=== PATIENT | female | born 1945 | race Caucasian/White ===

== ENCOUNTER → 2019-05-18 10:02 | Outpatient (CLI) | payer MEDICARE, SELFPAY ==
--- NOTE | 2019-05-18 10:06 | BD_ITS ---
STUDY: DUAL ENERGY X-RAY ABSORPTIOMETRY / DXA REASON FOR EXAM: Female, 73 years old. MACHINE PRINTER-SURGICAL EARLY AT 37 YRS OLD -- HX OF HRT AND TAMOXIFEN -- USES STEROID INHALER DAILY -- TAKES SUPPLEMENT WITH CALCIUM -- DOES MODERATE AMOUNT OF EXERCISE -- FAMILY HX OF OSTEO -- ZURDO OF 1.25 INCHES TECHNIQUE: Bone Mineral Density (BMD) measurements of lumbar spine and bilateral hips were obtained. COMPARISON: Comparison is made with prior study dated August 20, 2016. FINDINGS: Lumbar Spine (L1-L4): g/cm2 (0.901) / T-score (-2.2) / Z-score (-0.5) Findings are suggestive of osteopenia with a high fracture risk. Left Femur Total: g/cm2 (0.814) / T-score (-1.5) / Z-score (0.1) Left Femoral Neck: g/cm2 (0.813) / T-score (-1.6) / Z-score (0.2) Right Femur Total: g/cm2 (0.908) / T-score (-0.8) / Z-score (0.8) Right Femoral Neck: g/cm2 (0.840) / T-score (-1.4) / Z-score (0.4) The T-Scores on the most recent prior examination were: Lumbar Spine (L1-L4): There has been improvement of bone density since the previous examination. Left Femur Total: which represents a worsening of 1.2%. Right Femur Total: which represents an improvement of 6.1%. BD/Dexa Bone Density Study IMPRESSION: The patient is considered osteopenic as outlined below according to World [place] Organization (WHO) criteria with a high fracture risk. There has been improvement of bone density since the previous examination. Reference Information: The T-score is the number of standard deviations above or below the standard which is normal for young adults at their peak bone mineral density. The World Health Organization (WHO) interprets the T-scores as follows: Above -1 Normal bone density Between -1 and -2.5 Osteopenia Equal to / or below -2.5 Osteoporosis As a practical clinical guideline, osteopenia may be graded as follows: Mild -1 through -1.5 Moderate -1.6 through -2.0 Severe -2.1 through -2.4 The Z-score is the number of standard deviations above or below age-matched controls. A Z-score of less than -1.5 would be considered abnormal. References: 1. NIH Osteoporosis and Related Bone Diseases http://www.osteo.org 2. International Society for Clinical Densitometry http://www.iscd.org 3. National Osteoporosis Foundation http://www.nof.org Electronically Signed: Matthew Sutherland, at 14:25 EST , Service support ,
== END ==
PROVIDERS: Family Provider Internal Medicine; PCP Internal Medicine; Referring Provider Internal Medicine; Visit Provider Internal Medicine
DX: Z78.0 Asymptomatic menopausal state (principal)
CPT/HCPCS: 77080

== ENCOUNTER → 2022-01-22 | Outpatient (CLI) | payer MEDICARE, SELFPAY ==
--- NOTE | 2022-01-22 15:56 | BD_ITS ---
STUDY: DUAL ENERGY X-RAY ABSORPTIOMETRY / DXA REASON FOR EXAM: Female, 76 years old. [id number]. Patient is postmenopausal. TECHNIQUE: Bone Mineral Density (BMD) measurements of lumbar spine and bilateral hips were obtained. COMPARISON: Comparison is made with prior study dated 05/18/2019. FINDINGS: Lumbar Spine (L1-L4): g/cm2 (0.786) / T-score (-2.3) / Z-score (0.1) Findings are suggestive of osteopenia with a high fracture risk. Left Femur Total: g/cm2 (0.796) / T-score (-1.2) / Z-score (0.6) Left Femoral Neck: g/cm2 (0.640) / T-score (-1.9) / Z-score (0.2) Right Femur Total: g/cm2 (0.799) / T-score (-1.2) / Z-score (0.6) Right Femoral Neck: g/cm2 (0.644) / T-score (-1.9) / Z-score (0.2) The T-Scores on the most recent prior examination were: Lumbar Spine (L1-L4): There has been worsening of bone density since the previous examination. Left Femur Total: which represents an improvement of 5.6%. Right Femur Total: which represents a worsening of 5.4%. BD/Dexa Bone Density Study IMPRESSION: The patient is considered osteopenic as outlined below according to World [place] Organization (WHO) criteria with a high fracture risk. There has been worsening of bone density since the previous examination. Reference Information: The T-score is the number of standard deviations above or below the standard which is normal for young adults at their peak bone mineral density. The World Health Organization (WHO) interprets the T-scores as follows: Above -1 Normal bone density Between -1 and -2.5 Osteopenia Equal to / or below -2.5 Osteoporosis As a practical clinical guideline, osteopenia may be graded as follows: Mild -1 through -1.5 Moderate -1.6 through -2.0 Severe -2.1 through -2.4 The Z-score is the number of standard deviations above or below age-matched controls. A Z-score of less than -1.5 would be considered abnormal. References: 1. NIH Osteoporosis and Related Bone Diseases www osteo.org 2. International Society for Clinical Densitometry www iscd.org 3. National Osteoporosis Foundation www nof.org Electronically Signed: Matthew Sutherland MD at 9:36 EDT ,
== END | disposition home or self-care (01) ==
LOC: OPBD 15:51
PROVIDERS: PCP Internal Medicine; Referring Provider Internal Medicine; Visit Provider Internal Medicine
DX: Z78.0 Asymptomatic menopausal state (principal)
CPT/HCPCS: 77080

== ENCOUNTER → 2023-01-20 | Outpatient (CLI) | payer MEDICARE, SELFPAY ==
--- NOTE | 2023-01-20 12:15 | BI_ITS ---
MAMMOGRAPHY - BILATERAL SCREENING REASON FOR EXAM: Female, 77 years old. Routine annual screening examination. PERTINENT HISTORY: Personal history of breast cancer. Prior left lumpectomy and left axillary skin dissection. Heart with breast cancer. TECHNIQUE: Digital bilateral breast alina (3D mammographic acquisition) in the CC and MLO projections. 2-D mediolateral oblique (MLO) and craniocaudad (CC) views of both breasts were obtained. CAD: Full Field Digital Mammography with Computer Added Detection was performed. COMPARISON: Comparison is made with prior outside examination dated January 17, 2022. FINDINGS: Breast Composition: There are scattered areas of fibroglandular density. There are no dominant masses or suspicious calcifications. Postoperative scarring is seen in the upper deep medial portion of the left breast in keeping with prior lumpectomy. Surgical clips are seen in the left axilla. Stable appearance of the bilateral axillary lymph nodes. No other significant abnormalities are identified. There has been no significant change since the prior study. BI/SCRN MAMM (CAD)W/ALINA BILAT IMPRESSION: Stable bilateral screening mammogram. Yearly follow-up mammogram recommended. (A) ASSESSMENT CATEGORY: BIRADS Category 2: Benign. A letter regarding these results will be sent to the patient by the facility within 30 days. Approximately 10% of breast cancers are not detected by mammography. A normal mammogram should not delay biopsy of a clinically suspicious abnormality. [id number] Electronically Signed: Matthew Sutherland MD at 13:30 EDT ,
== END | disposition home or self-care (01) ==
PROVIDERS: PCP Internal Medicine; Referring Provider Internal Medicine; Visit Provider Internal Medicine
DX: Z12.31 Encounter for screening mammogram for malignant neoplasm of breast (principal)
CPT/HCPCS: 77063; 77067

== ENCOUNTER → 2024-05-11 | Outpatient (CLI) | payer MEDICARE, SELFPAY ==
--- NOTE | 2024-05-11 15:35 | BI_ITS ---
MAMMOGRAPHY - BILATERAL SCREENING 3-D TOMOSYNTHESIS REASON FOR EXAM: Female, 78 years old. postmenopausal -- screening PERTINENT HISTORY: No significant family history. TECHNIQUE: 2-D mammograms and 3-D Tomosynthesis of the breast (s) were performed. CAD was performed. COMPARISON: 01/20/2023 FINDINGS: The breast composition is heterogeneously dense that can obscure small breast masses. Scattered benign calcifications are seen. No dominant mass right breast. Area of focal asymmetry in the upper inner quadrant of the left breast at posterior depth and focal compression views recommended for further evaluation. No suspicious calcifications.. No architectural distortion is identified. There is no skin thickening or retraction. BI/SCRN MAMM (CAD)W/ALINA BILAT IMPRESSION: Further imaging evaluation is recommended. ASSESSMENT CATEGORY: BIRADS Category 0: Incomplete. Need additional imaging evaluation as above. A letter regarding these results will be sent to the patient by the facility within 30 days. FOLLOW UP RECOMMENDATION: Additional imaging recommended as above. (E) Approximately 10% of breast cancers are not detected by mammography. A normal mammogram should not delay biopsy of a clinically suspicious abnormality. Electronically Signed: Lino Bray MD at 19:59 EST ,
--- NOTE | 2024-05-11 15:36 | BD_ITS ---
STUDY: DUAL ENERGY X-RAY ABSORPTIOMETRY / DXA REASON FOR EXAM: Female, 78 years old. Postmenopausal screening TECHNIQUE: Bone Mineral Density (BMD) measurements of lumbar spine and bilateral hips were obtained. COMPARISON: 2021, 2019, 2016 FINDINGS: Lumbar Spine (L1-L4): g/cm2 (0.868) / T-score (-1.6) / Z-score (0.9) When compared to the previous study, the bone mineral density in the lumbar spine has increased by 4.6% Left Femur Total: g/cm2 (0.834) / T-score (-0.9) / Z-score (1.0) Left Femoral Neck: g/cm2 (0.682) / T-score (-1.5) / Z-score (0.7) Right Femur Total: g/cm2 (0.857) / T-score (-0.7) / Z-score (1.2) Right Femoral Neck: g/cm2 (0.675) / T-score (-1.6) / Z-score (0.6) When compared to the previous study, the bone mineral density of the left femur has increased by 4.7% and the right femur has increased by 7.2% BD/Dexa Bone Density Study IMPRESSION: The patient is considered osteopenic as outlined below according to World [place] Organization (WHO) criteria with a moderate fracture risk. 10 year fracture risk: Major osteoporotic fracture 31%, hip fracture in 18% Reference Information: The T-score is the number of standard deviations above or below the standard which is normal for young adults at their peak bone mineral density. The World Health Organization (WHO) interprets the T-scores as follows: Above -1 Normal bone density Between -1 and -2.5 Osteopenia Equal to / or below -2.5 Osteoporosis As a practical clinical guideline, osteopenia may be graded as follows: Mild -1 through -1.5 Moderate -1.6 through -2.0 Severe -2.1 through -2.4 The Z-score is the number of standard deviations above or below age-matched controls. A Z-score of less than -1.5 would be considered abnormal. References: 1. NIH Osteoporosis and Related Bone Diseases www osteo.org 2. International Society for Clinical Densitometry www iscd.org 3. National Osteoporosis Foundation www nof.org Electronically Signed: Wayne Cottrell MD at 11:29 EST ,
== END | disposition home or self-care (01) ==
PROVIDERS: PCP Internal Medicine; Referring Provider Internal Medicine; Visit Provider Internal Medicine
DX: Z12.31 Encounter for screening mammogram for malignant neoplasm of breast (principal); Z78.0 Asymptomatic menopausal state
CPT/HCPCS: 77063; 77067; 77080

== ENCOUNTER 2024-05-18 11:00 | Outpatient (RCR) | payer MEDICARE, SELFPAY ==
--- NOTE | 2024-04-05 09:58 | HP.PTEVAL_ITS ---
Patient's Visit Information Visit Information Visit Information: CLARENCE TERRY is a 78 year old F referred to Physical Therapy by Dr. Nichol Schneider DO with a diagnosis of poor balance. Date of Evaluation: 04/05/24 Physical Therapist: Lamont Garber, DPT, OCS, CSCS Visit Plan Frequency: 2x /Week Duration: 4 Weeks Plan: Balance assessment and then 2x/week for 2-4 weeks to teach appropriate bal ance/strength ex and progress adaptation ex. IE today VOR H 60 seconds 6x/day and balance safeety with HO Subjective Subjective: Sent over for balance. Frequently feels like she might lose balance and fall. Head may not feel right even when sitting. That has been going on for a few months. Thought it was vertigo at first. No spinning. Head does not always feel right. Doesn't feel balanced and movement makes it worse. Fell one time while getting dressed and put foot on toilet when putting sock on and fell into toilet. No neuropathy. Sleep is OK Not employed. Basic ADLs all I. 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 Took care of outdoor work including gardening until this past summer. Didn't feel like she had the energy. Spends day packing up things and clearing out their things. Does not go out much. No regular exercises No cane or walker but has a cane. Objective Objective: Walks I into PT wht good speed, transfers chair and bed I without UE. Steps reciprocally with no rail today. cervical and UE AROM WFL and without hesitation or pain - B hallpike arabella, - roll test. oculaomotor: no nystagmus with gaze or head shake - skew eye deviation - ocular tilt normal purusit and saccades. VOR H 30 sec makes slightly dizzy for 10 seconds. - head thrust SLS is 10 seconds B without hesitation or LOB eo. reflexes 1/3 patella an achilles Sensation LE WNL to gross light touch. coordination to reciprocal toe tap and heel tap is good. strength hips and core 3+ and knees and ankles 4/5 Balance/Special Test Scores Functional Gait Assessment Score: 28 % Disability: 6.6700 CATSIB Score (Max score 120 seconds): 93 Lower Extremity Functional Score: 53 30 Second Chair Rise Test Seconds: 15 Goals Goal 1:: I appropriate balance and strength ex for LE Goal Time Frame: 2-4 Weeks Goal 2:: Biodex balance assessment Goal Time Frame: 2 Weeks Goal 3:: Pt feel 75% better in balance and strength Goal Time Frame: 2-4 Weeks Goal 4:: 60 LEFS Goal Time Frame: 2-4 Weeks Rehabilitation Potential Physical Therapy Diagnosis: goofy feeling in head and h/o falls limiting confident function Rehabilitation Potential: Fair Anticipated Interventions Patient/Client Instruction: Educate patient on: Condition, Plan of Care and Risk Factors For the Purpose of:: To increase tolerance to activity/condition/position, To improve gait and locomotor functions and To improve safety Therapeutic Exercise to Include: Strength training and Balance training Comment: adaptation For the Purpose of:: To improve muscle performance and motor function, To increase tolerance to activity/condition/position, To improve gait and locomotor functions and To improve safety Text: Thank you for the opportunity to evaluate your patient. For Medicare and Medicare HMO plans, please review the plan of care and approve it. It will need to be FAXED BACK to us at [phone] for Medicare purposes. For Medicare only, by signing this I certify the plan of care. Please let me know if there are questions or concerns regarding this plan of care. Physician Signature: Date:
--- NOTE | 2024-04-12 15:36 | HP.PTCOM ---
PT Communication Note 04/12/[address] Nichol Schneider, DO , Thank you for the referral of Kerline to [facility] for Biodex balance assessment. I have enclosed a copy of the results for your review. In summation, she scored well aust[place] the Modified CTSIB with very little deficits from the norm. Her Limits of Stability test showed some deficits in posterior weight shifting. In combination with her dizziness, I plan to instruct her in progression of adaptation and weight shifting exercises per her plan of care which she will then continue via HEP. Please let me know if there are questions regarding her care. Thank you. Sincerely, GISELA De LunaT, OCS, Contact Information
--- NOTE | 2024-05-18 11:17 | HP.PTDCSUM ---
Discharge Summary D/C summary: It has been my pleasure to treat CLARENCE TERRY referred by Dr. Nichol Schneider DO, with the diagnosis of poor balance for a total of 5 visit(s). Discharge Date: 05/18/24 Please see the following information for a summary of their discharge status. Subjective Subjective: Was sick and hard time getting exercises in a number of days. Westley went well. Balance feels alot better. Not losing balance and catching self as much. had to be careful prior. To doctor in near future next week. HEP: missed a few days but otherwise doing them and has gotten back to them. Overall Improvement % Improvement: 90 Objective Objective/Function: FGA is +@ Mod CTSIB is 120 much better testing and feeling much better. Goals Goal 1:: I appropriate balance and strength ex for LE Goal Progress: Goal Met Goal 2:: Biodex balance assessment Goal Progress: Goal Met Goal 3:: Pt feel 75% better in balance and strength Goal Progress: 90% Goal 4:: 60 LEFS Goal Progress: Goal Met Plan Plan: d/c to HEP D/C Information d/c sentence: If there are questions or concerns regarding this patient's physical therapy, please feel free to call me at [phone]. Thank you for the referral of this patient. Sincerely, Lamont Garber, DPT, OCS, CSCS Balance/Gait/Functional tests Balance/Special Test Scores Functional Gait Assessment Score: 30 % Disability: 0 CATSIB Score (Max score 120 seconds): 120 Lower Extremity Functional Score: 69 30 Second Chair Rise Test Seconds: 15 Improvement % Improvement: 90
== END 2024-05-18 19:00 | disposition home or self-care (01) ==
LOC: PT 11:00
PROVIDERS: PCP Internal Medicine; Referring Provider Internal Medicine; Visit Provider Internal Medicine
DX: R26.89 Other abnormalities of gait and mobility (principal)
CPT/HCPCS: 97110; 97161; 97530; 97750

== ENCOUNTER → 2024-05-18 | Outpatient (CLI) | payer MEDICARE, SELFPAY ==
--- NOTE | 2024-05-18 08:55 | US_ITS ---
STUDY: ULTRASOUND BREAST - LEFT REASON FOR EXAM: Female, 78 years old. Status post lumpectomy. Abnormal screening mammogram. TECHNIQUE: Axial and longitudinal images of the LEFT breast were performed with a high resolution ultrasound transducer. # OF IMAGES: 21 COMPARISON: Comparison is made with prior mammogram done earlier today. FINDINGS: LEFT Breast: The upper medial aspect of the left breast was examined with ultrasound. No sonographic abnormalities seen. US/Breast Limited Unilateral IMPRESSION: No sonographic abnormalities seen. Routine annual mammographic follow-up is recommended. ASSESSMENT CATEGORY: BIRADS Category 2: Benign. A letter regarding these results will be sent to the patient by the facility within 30 days. Electronically Signed: Matthew Sutherland MD at 12:13 EST ,
--- NOTE | 2024-05-18 08:55 | BI_ITS ---
MAMMOGRAPHY - UNILATERAL DIAGNOSTIC: LEFT BREAST REASON FOR EXAM: Female, 78 years old. Left breast asymmetry. PERTINENT HISTORY: History of prior left lumpectomy and radiation. TECHNIQUE: 90 degree lateral and compression spot views of the left breast were obtained. CAD: Full Field Digital Mammography with Computer Added Detection was performed. COMPARISON: Comparison is made with prior study dated May 11, 2024. FINDINGS: Breast Composition: There are scattered areas of fibroglandular density. Persistent architectural distortion in the upper deep central aspect of the left breast suggestive of postoperative change. Sonographic correlation recommended. No other significant abnormalities are identified. BI/DIAG MAMM W/CAD, UNILAT IMPRESSION: Stable postoperative scarring. Sonographic correlation recommended. ASSESSMENT CATEGORY: BIRADS Category 0: Incomplete. Need additional imaging evaluation. A letter regarding these results will be sent to the patient by the facility within 30 days. Approximately 10% of breast cancers are not detected by mammography. A normal mammogram should not delay biopsy of a clinically suspicious abnormality. Electronically Signed: Matthew Suhterland MD at 11:15 EST ,
== END | disposition home or self-care (01) ==
PROVIDERS: PCP Internal Medicine; Referring Provider Internal Medicine; Visit Provider Internal Medicine
DX: R92.8 Other abnormal and inconclusive findings on diagnostic imaging of breast (principal)
CPT/HCPCS: 76642; 77065

== ENCOUNTER → 2024-06-03 | Outpatient (CLI) | payer MEDICARE, SELFPAY ==
--- NOTE | 2024-06-03 12:19 | MRI_ITS ---
STUDY: MRI BRAIN WITHOUT CONTRAST REASON FOR EXAM: Female, 78 years old. Poor Balance TECHNIQUE: Standardized multiplanar fat and water weighted pulse sequences were obtained. COMPARISON: None. FINDINGS: Normal size of the ventricles and extra-axial spaces for the patient''s age. There are a limited number of small white matter hyperintensities, distributed throughout the deep white matter tracts of the cerebral hemispheres, consistent with mild chronic white matter ischemic changes. There is no evidence for recent intracranial ischemia or other cause of cytotoxic edema on diffusion weighted imaging (DWI). Normal T2* images of the brain without demonstrated susceptibility artifact. There is no demonstrated hemosiderin stain. Normal bilateral basal ganglia. Normal thalami. There is no extra-axial fluid accumulation. Normal flow voids within the major intracranial circulation suggesting patency by spin echo criteria. Normal sella turcica, pituitary gland, infundibular stalk, optic chiasm and hypothalamus. Normal tectal plate and pineal gland. Normal midbrain, vasile and medulla. Normal cerebellum. Normal basal cisterns. Normal bilateral temporal bones. Normal bilateral internal auditory canals. There are bilateral ocular lens implants with otherwise normal intraorbital contents. There is mild mucosal thickening of the visualized paranasal sinuses. Normal calvarium and skull base. Normal visualized soft tissue structures. Normal visualized upper cervical spine. MRI/Brain without Contrast IMPRESSION: Involutional changes of the brain, as described above. Electronically Signed: Daniel Hopkins MD at 18:28 EST ,
== END | disposition home or self-care (01) ==
PROVIDERS: PCP Internal Medicine; Referring Provider Internal Medicine; Visit Provider Internal Medicine
DX: R26.89 Other abnormalities of gait and mobility (principal)
CPT/HCPCS: 70551

== ENCOUNTER 2025-03-25 10:00 | Outpatient (RCR) | payer MEDICARE, SELFPAY ==
--- NOTE | 2025-01-26 12:43 | HP.SP.EVAL ---
Visit History Visit Info Date of Eval: 01/24/25 Today is Visit #: 1 Sanitation Laborer: BERNIE History Attending Doctor: Referring Doctor: Reason for Referral: [facility] Medical Diagnosis: Vocal fold dyskinesia Date of Onset of Diagnosis: 2018 Previous speech therapy: No Other Relevant Medical History/Diagnoses/Surgery: Kerline is a 79F who presents with a medical diagnosis of vocal fold dyskinesia. Patient stated that the onset of her symptoms was on 2018, which include SOB and wheezing during physical exertion, reduction of vocal volume, and feeling like she is running out of air while talking (intermittently). Patient has a history of asthma and restrictive airway disease, as well as breast cancer. Patient currently lives in an apartment that connects to her daughter's house, alone. Medications related to this diagnosis: hydrocodone-acetaminophen 1 TABLET tablet, mometasone-formoterol [Dulera] 8.8 GM HFA aerosol inhaler, niacin 50 MG tablet, omega-3 fatty acids-fish oil 1 EACH capsule, amlodipine 2.5mg, L-methylfolate, [employer] Smoking Status: Never smoker Diagnosis Diagnosis: Moderate vocal fold dyskinesia Pain Is pain an issue with your current prescribed condition?: No Personal Preferred language: Telugu Patient Allergies Allergies Allergies: Allergies No Known Allergies Allergy (Verified 07/16/19 13:15) Subjective Voice Intubation Was the Client intubated: No Intake Water (ounces): 25 Tea (ounces): 8 Alcoholic Beverage Intake Intake: Never Other Product Usage Do you use products containing menthol (if yes, list): No Do you take Vitamin C Supplements (if yes, list amt (mg)/day: No Do you use recreational drugs (if yes, list type/amt/frequency): No Objective Voice Observational Assessment Pitch Range in octaves: 1-2 Maximum Phonation Time in seconds: 8.76 S/Z Ratio: 1.46 Sustained /s/: 6.6 Sustained /z/: 4.5 Ratio: 1.46 Greater than 1:4 (indicates dysfunction): Yes Voice Handicap Index (VHI) VHI VHI Administered: Yes VHI: Patient completed the Voice Handicap Index, which is a 30 item, self administered questionnaire that asks an individual to describe their voice and the effects of their voice on their life. Three subscales cover the areas of functional, emotional, and physical aspects of the voice disorders. Points from the questions can be combined to assign a total score, or they can be combined by subscale. Results for the VHI are as follows: Date: 01/26/25 VHI Test Functional: Score: 7; patient reports that her voice makes it difficult for people to hear her (3-almost always), people have a difficult time understanding her in a noisy room (3-almost always), and people ask her to repeat herself when speaking [id number] (1-almost never). Physical: Score: 21; patient reports that she runs out of air when she talks (3-almost always), the sound of her voice varies throughout the day (4-always), her voice sounds creaky and dry (3-almost always), she feels as though she has to strain to produce voice (4-always), the clarity of her voice is unpredictable (1-almost never), she uses a great deal of effort to speak (2-sometimes), her voice gets worse in the evenings (3-almost always), and her voice "gives out" on her in the middle of speaking (1-almost never). Emotional: Score: 2; patient reports that her voice problem upsets her (1-almost never), and she feels embarassed when people ask her to repeat herself (1-almost never). Total Severity Rating: Mild (0-30) Comments -: -: Patient with reduced volume, unstable pitch, and unstable loudness throughout assessment as well as a breathy and fluttery vocal quality. Patient reports having tension in her jaw and neck most intermittently while speaking. Patient with reduced breath support throughout assessment as well. Reference: Neuro-QoL instrument Radiation Oncology Patient Plan Plan Plan: At this time, it is recommended that Kerline participates in skilled outpatient speech therapy to target mild-moderate vocal fold dyskinesia. Participation in intervention will aid in increasing volume, breath support, range of pitch, and vocal quality during phonation. Having adequate volume, pitch and quality of voice will increase Emmett's ability to effectively communicate her daily needs and wants as well as aid in increasing her overall quality of life. Recommendations Treatment Warranted: Yes Treatment Warranted: Voice Progress Prognosis: Good Frequency Frequency: 1x/Week Duration: 6 Months Visits in this POC: 26 Patient/Family Goal Patient/Family Goal: Patient stated she wants to increase her breath support and see improvement in her vocal quality. Goals that are Established Determination:: Goals will be added/modified as deemed necessary and appropriate. Therapy will be discontinued when results of re-evaluation indicate therapy is no longer needed or lack of progress has been documented. Goal #1-5 Goal #1: Kerline will establish volitional control of respiration evidenced by utilization of diaphragmatic breathing to sustain "ah" for 15-20 seconds at least 4 times within 4 weeks. Goal #2: Kerline will utilize voice facilitation and resonance training to reduce hoarseness occurrences to 15% of the time at the short conversation level with fading cues within 4 weeks. Goal #3: Kerline will complete a weekly log dictating instances of vocal cord dysfunction or moments of activities of "not breathing" including time of day, activity, and stress level on a scale of 1-5 with 1 being mild tension and 5 being complete airway closure. Education Patient has Indicated that the Following Identified Educational Needs: None The Patient has indicated that they have no educational or learning abilities that may effect their care.: Yes Patient Instruction Patient Education: Diagnosis, Treatment Plan and Goals Person Taught: Patient Teaching Method: Discussion Response to teaching: Verbalize Understanding
--- NOTE | 2025-03-25 15:23 | HP.SP.DC_ITS ---
ST Discharge Summary Discharged: Discharge: Patient is being discharged from [facility] speech therapy services at this time. Patient attended initial evaluation on 01/26/25 and attended weekly appointments for 7 weeks. Patient learning breath control, resonance, and vocal function exercises during sessions, and completing home exercise program between visits. Patient has met goals and is in agreement with discharge recommendation. Thank you for allowing me to participate in the care of this patient.
== END 2025-03-25 19:00 | disposition home or self-care (01) ==
LOC: SP 10:00
PROVIDERS: PCP Internal Medicine; Referring Provider Internal Medicine; Visit Provider Internal Medicine
DX: J38.3 Other diseases of vocal cords (principal)
CPT/HCPCS: 92507; 92524